=== PATIENT | female | born 1985 | race Caucasian/White ===

== ENCOUNTER 2019-08-23 01:49 | Inpatient (IN) | payer MEDICAID ==
[~2019-08-23] VITALS: Ht 152.4 cm; Wt 60.8 kg
[2019-08-23] MEDS ORDERED: DEXT 5%/LR + PITOCIN 20UNITS/L 1,000 ML IV SCH ×2 (03:04→08:44)
[2019-08-23] MEDS ORDERED: PNV1TABL76 PO (03:08)
[2019-08-23] MEDS ORDERED: FERR325T6 PO (03:08)
[2019-08-23] MEDS ORDERED: CARBOPROST TROMETHAMINE 250 MCG/ML AMPUL IM PRN (03:15)
[2019-08-23] MEDS ORDERED: METHYLERGONOVINE MALEATE 0.2 MG/ML IM PRN (03:15)
[2019-08-23] MEDS ORDERED: NALOXONE HCL 0.4 MG/ML 1ML VIAL IM PRN (03:15)
[2019-08-23] MEDS: LACTATED RINGERS 1,000 ML IV SCH ×2 (03:15→05:14)
[2019-08-23 04:20] LABS: BASOPHILS % 0.3 % (0.0-2.0); EOSINOPHILS % 0.4 % (0.0-5.0); HEMATOCRIT. 37.7 % (36.0-48.0); HEMOGLOBIN. 13.4 g/dL (12.0-16.0); LYMPHOCYTES % 27.9 % (20.0-50.0); MEAN CORPUSCULAR HEMOGLOBIN 36.1 pg (28.0-32.0); MEAN CORPUSCULAR VOLUME 101.9 fL (81.0-99.0); MEAN PLATELET VOLUME 10.5 fl (7.4-10.4); MONOCYTES % 5.6 % (2.0-8.0); NEUTROPHILS % 65.8 % (40.0-76.0); PLATELET 194 x1000/uL (130-400); RED CELL DISTRIBUTION WIDTH 13.6 % (11.6-14.6)
[2019-08-23 04:22] LABS: CLARITY URINE TURBID (CLEAR); COLOR URINE YELLOW (YELLOW); KETONES URINE NEGATIVE (NEGATIVE); LEUKOCYTE ESTERASE URINE 1+ (NEGATIVE); NITRITE URINE NEGATIVE (NEGATIVE); OCCULT BLOOD URINE TRACE (NEGATIVE); PROTEIN URINE 2+ (NEGATIVE); SPECIFIC GRAVITY URINE 1.014 (1.005-1.030); UROBILINOGEN URINE 0.2 E.U./dL (0.2-1.0)
[2019-08-23 04:27] LABS: INR 0.9; PROTHROMBIN TIME 9.4 sec (9.6-11.0)
[2019-08-23 04:46] LABS: *AMPHETAMINES SCREEN URINE NEGATIVE (NEGATIVE); *BARBITURATES SCREEN URINE NEGATIVE (NEGATIVE); *BENZODIAZEPINES SCREEN URINE NEGATIVE (NEGATIVE); *COCAINE SCREEN URINE NEGATIVE (NEGATIVE); METHADONE URINE SCREEN NEGATIVE (NEGATIVE); OPIATES URINE SCREEN NEGATIVE (NEGATIVE)
[2019-08-23 04:47] LABS: CANNABINOID URINE SCREEN NEGATIVE (NEGATIVE); PHENCYCLIDINE URINE SCREEN NEGATIVE (NEGATIVE)
[2019-08-23] MEDS ORDERED: MORPHINE SULFATE/PF 1MG/ML 10ML AMP ONE (07:07)
[2019-08-23] MEDS ORDERED: OXYTOCIN 10 UNITS/ML 1ML ONE (07:10)
[2019-08-23] MEDS ORDERED: EPHEDRINE SULFATE 50MG/ML VIAL ONE (07:10)
[2019-08-23] MEDS ORDERED: PHENYLEPHRINE HCL 10 MG/ML 1ML (IV VIAL) IV ONE (07:10)
[2019-08-23] MEDS ORDERED: GLYCOPYRROLATE 0.2 MG/ML 2ML VIAL ONE (07:10)
[2019-08-23] MEDS ORDERED: SODIUM CHLORIDE 0.9% 10ML VIAL ONE ×3 (07:12→07:18)
[2019-08-23] MEDS ORDERED: CITRIC ACID/SODIUM CITRATE SOLN 30ML UDC PO STA (07:12)
[2019-08-23] MEDS ORDERED: CEFAZOLIN SODIUM 1000MG/VIAL ONE (07:18)
[2019-08-23] MEDS ORDERED: ONDANSETRON HCL 4MG/2ML INJ ONE (07:50)
[2019-08-23] MEDS ORDERED: KETOROLAC 60MG/2ML VIAL IM ONE (07:59)
[2019-08-23] MEDS ORDERED: IBUPROFEN 400MG TABLET PO PRN (08:45)
[2019-08-23] MEDS ORDERED: DEXAMETHASONE 10 MG/ML VIAL IV PRN (08:45)
[2019-08-23] MEDS ORDERED: NALBUPHINE HCL 10 MG/ML AMP IV PRN (08:45)
[2019-08-23] MEDS ORDERED: DIPHENHYDRAMINE 50MG/ML VIAL IV PRN ×2 (08:45→15:30)
[2019-08-23] MEDS ORDERED: MORPHINE SULFATE 10 MG/ML CPJ IV PRN ×2 (08:45→15:30)
[2019-08-23] MEDS ORDERED: MORPHINE SULFATE 4 MG/ML CPJ (NOT FOR IM USE) IV PRN ×2 (08:45)
[2019-08-23] MEDS ORDERED: ONDANSETRON HCL 4MG/2ML INJ IV PRN ×2 (08:45→15:30)
[2019-08-23] MEDS ORDERED: MEPERIDINE HCL/PF 25MG/ML CPJ IV PRN (08:45)
[2019-08-23] MEDS ORDERED: RHO(D) IMMUNE GLOBULIN 300 MCG/SYR IM PRN (08:45)
[2019-08-23] MEDS ORDERED: BISACODYL 10MG SUPP PR PRN (09:00)
[2019-08-23] MEDS ORDERED: IBUPROFEN 800 MG in SODIUM CHLORIDE 0.9% 250 ML IV ONE (10:30)
[2019-08-23 11:00] VITALS: BP 119/64
[2019-08-23 11:04] LABS: HEPATITIS B SURFACE ANTIGEN NEGATIVE
[2019-08-23 12:00] VITALS: BP 118/61
[2019-08-23] MEDS ORDERED: KETOROLAC 30MG/ML VIAL IV SCH (12:00)
[2019-08-23 15:00] VITALS: BP 120/62
[2019-08-23] MEDS ORDERED: MORPHINE SULFATE 2 MG/ML CPJ (NOT FOR IM USE) IV PRN ×2 (15:30)
[2019-08-23] MEDS ORDERED: KETOROLAC 30MG/ML VIAL IV PRN (15:30)
[2019-08-23] MEDS ORDERED: TETANUS, DIPHTHERIA, PERTUSSIS VAC/PF 0.5ML (>7YR OLD) IM ONE (17:00)
[2019-08-23] MEDS ORDERED: INFLUENZA VIRUS VACCINE(AFLURIA) 0.5ML SYR IM ONE (17:00)
[2019-08-23 19:45] VITALS: BP 115/60
[2019-08-23 20:45] LABS: BASOPHILS % 0.1 % (0.0-2.0); EOSINOPHILS % 0.3 % (0.0-5.0); HEMATOCRIT. 32.9 % (36.0-48.0); HEMOGLOBIN. 11.5 g/dL (12.0-16.0); LYMPHOCYTES % 22.5 % (20.0-50.0); MEAN CORPUSCULAR HEMOGLOBIN 35.8 pg (28.0-32.0); MEAN CORPUSCULAR VOLUME 102.5 fL (81.0-99.0); MEAN PLATELET VOLUME 10.6 fl (7.4-10.4); MONOCYTES % 7.9 % (2.0-8.0); NEUTROPHILS % 69.2 % (40.0-76.0); PLATELET 166 x1000/uL (130-400); RED BLOOD CELL COUNT 3.21 mill/uL (4.2-5.4); RED CELL DISTRIBUTION WIDTH 13.8 % (11.6-14.6)
[2019-08-23 23:40] VITALS: BP 105/66
[2019-08-24 04:38] VITALS: BP 107/55
[2019-08-24] MEDS: IBUPROFEN 800MG TABLET PO PRN ×2 (04:39→12:31)
[2019-08-24 08:00] VITALS: BP 99/61
[2019-08-24 13:42] VITALS: BP 111/72
[2019-08-24 20:00] VITALS: BP 109/59
[2019-08-24 23:55] VITALS: BP 112/64
[2019-08-25 04:00] VITALS: BP 114/65
[2019-08-25] MEDS: IBUPROFEN 800MG TABLET PO PRN (06:53)
[2019-08-25 07:30] VITALS: BP 104/56
[2019-08-25] MEDS ORDERED: PENICILLIN G BENZATHINE 2,400,000 UNITS/4ML SYR IM NR (08:00)
[2019-08-25 10:18] LABS: BASOPHILS % 0.3 % (0.0-2.0); EOSINOPHILS % 0.5 % (0.0-5.0); HEMATOCRIT. 34.2 % (36.0-48.0); HEMOGLOBIN. 11.7 g/dL (12.0-16.0); LYMPHOCYTES % 18.2 % (20.0-50.0); MEAN CORPUSCULAR HEMOGLOBIN 35.1 pg (28.0-32.0); MEAN CORPUSCULAR VOLUME 102.2 fL (81.0-99.0); MEAN PLATELET VOLUME 9.9 fl (7.4-10.4); MONOCYTES % 6.1 % (2.0-8.0); NEUTROPHILS % 74.9 % (40.0-76.0); PLATELET 215 x1000/uL (130-400); RED BLOOD CELL COUNT 3.35 mill/uL (4.2-5.4); RED CELL DISTRIBUTION WIDTH 13.7 % (11.6-14.6)
[2019-08-25 16:00] VITALS: BP 113/67
[2019-08-25 19:30] VITALS: BP 103/69
[2019-08-26 04:00] VITALS: BP 90/46
[2019-08-26] MEDS ORDERED: IBUP-2030 PO (07:09)
[2019-08-26 07:45] VITALS: BP 114/64
== END 2019-08-26 10:00 | disposition home or self-care (01) | DRG 540 ==
LOC: OBSVTOIN 01:49 → 8 EST LDRP 01:49 → 8EST 10:48
PROVIDERS: ADMIT Obstetrics & Gynecology; ATTEND Obstetrics & Gynecology
PROC: 10D00Z1 Extraction of Products of Conception, Low, Open Approach (ICD-10-PCS; principal; 2019-08-23)
DX: O69.81X0 Labor and delivery complicated by cord around neck, without compression, not applicable or unspecified (principal); O98.12 Syphilis complicating childbirth; O34.211 Maternal care for low transverse scar from previous cesarean delivery; Z37.0 Single live birth; Z3A.39 39 weeks gestation of pregnancy
CPT/HCPCS: 36415; 80305; 81003; 85025; 86592; 86593; 86703; 86762; 86780; 86850; 86900; 87340; 88307; 90686; 90715; 99281; G0378; J0561; J0690; J1741; J1885; J2274; J2370; J2405; J2590; J3490; J7050; J7120

== ENCOUNTER 2022-06-24 09:00 | Inpatient (IN) | payer MEDICAID ==
[~2022-06-24] VITALS: Ht 149 cm; Wt 63.0 kg
[~2022-06-24 09:00] MED LIST: FERR325T6 PO; IBUP-2030 PO; PNV1TABL76 PO
[2022-06-24] MEDS ORDERED: LACTATED RINGERS 1,000 ML IV SCH (10:15)
[2022-06-24] MEDS ORDERED: NALOXONE HCL 0.4 MG/ML 1ML VIAL IM PRN (10:15)
[2022-06-24] MEDS ORDERED: AMPICILLIN 2GM in NS 100ML 100 ML IV NR (10:15)
[2022-06-24] MEDS ORDERED: METHYLERGONOVINE MALEATE 0.2 MG/ML IM PRN (10:15)
[2022-06-24] MEDS ORDERED: BUTORPHANOL TARTRATE 2 MG/ML VIAL IV PRN (10:15)
[2022-06-24] MEDS ORDERED: LIDOCAINE HCL 1% 20ML VIAL (Pyxis) INJ INFIL SCH (10:15)
[2022-06-24 10:23] LABS: BASOPHILS % 0.3 % (0.0-2.0); EOSINOPHILS % 0.1 % (0.0-5.0); HEMATOCRIT. 37.4 % (36.0-48.0); HEMOGLOBIN. 12.7 g/dL (12.0-16.0); LYMPHOCYTES % 14.2 % (20.0-50.0); MEAN CORPUSCULAR HEMOGLOBIN 33.8 pg (28.0-32.0); MEAN CORPUSCULAR VOLUME 99.9 fL (81.0-99.0); MEAN PLATELET VOLUME 10.7 fl (7.4-10.4); NEUTROPHILS % 80.4 % (40.0-76.0); PLATELET 215 x1000/uL (130-400); RED BLOOD CELL COUNT 3.74 mill/uL (4.2-5.4); RED CELL DISTRIBUTION WIDTH 13.5 % (11.6-14.6)
[2022-06-24 10:31] LABS: CLARITY URINE TURBID (CLEAR); KETONES URINE NEGATIVE (NEGATIVE); LEUKOCYTE ESTERASE URINE 2+ (NEGATIVE); NITRITE URINE NEGATIVE (NEGATIVE); OCCULT BLOOD URINE 3+ (NEGATIVE); PROTEIN URINE 3+ (NEGATIVE); SPECIFIC GRAVITY URINE 1.019 (1.005-1.030)
[2022-06-24 10:33] LABS: INR 0.9; PARTIAL THROMBOPLASTIN TIME 26.2 sec (23.4-31.0); PROTHROMBIN TIME 9.6 sec (9.6-11.0)
[2022-06-24 10:53] LABS: COLOR URINE BLOODY (YELLOW)
[2022-06-24 11:07] LABS: *AMPHETAMINES SCREEN URINE NEGATIVE (NEGATIVE); *BARBITURATES SCREEN URINE NEGATIVE (NEGATIVE); *BENZODIAZEPINES SCREEN URINE NEGATIVE (NEGATIVE); *COCAINE SCREEN URINE NEGATIVE (NEGATIVE); CANNABINOID URINE SCREEN NEGATIVE (NEGATIVE); METHADONE URINE SCREEN NEGATIVE (NEGATIVE); OPIATES URINE SCREEN NEGATIVE (NEGATIVE); PHENCYCLIDINE URINE SCREEN NEGATIVE (NEGATIVE)
[2022-06-24] MEDS: OXYTOCIN 30 UNITS/500ML NS PMX 500 ML IV SCH ×2 (12:02→12:47)
[2022-06-24] MEDS ORDERED: IBUPROFEN 800MG TABLET PO PRN (12:30)
[2022-06-24] MEDS ORDERED: BENZOCAINE/LANOLIN/ALOE VERA SPRAY TOP PRN (12:30)
[2022-06-24] MEDS ORDERED: IBUPROFEN 400MG TABLET PO PRN (12:30)
[2022-06-24 13:15] VITALS: BP 115/68
[2022-06-24 16:00] VITALS: BP 124/84
[2022-06-24] MEDS ORDERED: AMPICILLIN 1,000 MG in SODIUM CHLORIDE 0.9% 50 ML IV SCH (16:30)
[2022-06-24] MEDS ORDERED: INFLUENZA VACCINE 05/PF 0.5 ML SYRINGE IM ONE (17:30)
[2022-06-24 20:00] VITALS: BP 116/71
[2022-06-25] VITALS: BP 120/82
[2022-06-25 04:00] VITALS: BP 117/79
[2022-06-25] MEDS: FERROUS SULFATE 325MG TABLET PO SCH ×3 (07:30→17:30)
[2022-06-25 07:33] LABS: BASOPHILS % 0.2 % (0.0-2.0); EOSINOPHILS % 0.2 % (0.0-5.0); HEMATOCRIT. 31.2 % (36.0-48.0); HEMOGLOBIN. 10.9 g/dL (12.0-16.0); LYMPHOCYTES % 18.9 % (20.0-50.0); MEAN CORPUSCULAR VOLUME 100.1 fL (81.0-99.0); NEUTROPHILS % 73.7 % (40.0-76.0); PLATELET 208 x1000/uL (130-400); RED BLOOD CELL COUNT 3.12 mill/uL (4.2-5.4); RED CELL DISTRIBUTION WIDTH 13.7 % (11.6-14.6)
[2022-06-25 08:00] VITALS: BP 110/68
[2022-06-25] MEDS ORDERED: PRENATAL VIT/FE FUMARATE/FA TABLET PO SCH (09:00)
[2022-06-25] MEDS ORDERED: PEN G BENZ/PEN G PROCAINE CR 1.2 MMU/2 ML IM ONE (09:30)
[2022-06-25] MEDS ORDERED: FENTANYL CITRATE/PF 50MCG/ML 2ML VIAL ONE (10:47)
[2022-06-25] MEDS ORDERED: LIDOCAINE HCL/PF 1% 10 MG/ML 5ML VIAL ONE (10:48)
[2022-06-25] MEDS ORDERED: PROPOFOL 200MG/20ML VIAL IV ONE (10:48)
[2022-06-25] MEDS ORDERED: MIDAZOLAM HCL 2 MG/2 ML VIAL ONE (10:48)
[2022-06-25] MEDS ORDERED: PENICILLIN G BENZATHINE 1,200,000 UNITS/2ML SYR IM SCH ×2 (11:00)
[2022-06-25] MEDS ORDERED: KETOROLAC 60MG/2ML VIAL IM ONE (11:49)
[2022-06-25] MEDS ORDERED: ONDANSETRON HCL 4MG/2ML INJ ONE (11:50)
[2022-06-25] MEDS ORDERED: BUPIVACAINE HCL/PF 0.25% (2.5MG/ML) 10ML ONE (12:11)
[2022-06-25 13:58] VITALS: BP 113/62
[2022-06-25 20:00] VITALS: BP 117/75
[2022-06-26 03:00] VITALS: BP 130/79
[2022-06-26] MEDS ORDERED: IBUP-2030 PO (07:44)
[2022-06-26 08:00] VITALS: BP 125/80
[2022-06-26 16:00] VITALS: BP 128/77
[2022-06-29 18:44] LABS: HEPATITIS B SURFACE ANTIGEN NEGATIVE
== END 2022-06-26 17:02 | disposition home or self-care (01) | DRG 541 ==
LOC: OBSVTOIN 09:00 → INTOOBSV 09:00 → L&D 09:00 → 8 EST LDRP 09:13 → 8EST 13:12
PROVIDERS: ADMIT Obstetrics & Gynecology; ATTEND Obstetrics & Gynecology
PROC: 10D07Z6 Extraction of Products of Conception, Vacuum, Via Natural or Artificial Opening (ICD-10-PCS; principal; 2022-06-24)
PROC: 0UB70ZZ Excision of Bilateral Fallopian Tubes, Open Approach (ICD-10-PCS; 2022-06-24)
PROC: 0KQM0ZZ Repair Perineum Muscle, Open Approach (ICD-10-PCS; 2022-06-24)
DX: O98.12 Syphilis complicating childbirth (principal); Z37.0 Single live birth; O34.211 Maternal care for low transverse scar from previous cesarean delivery; O70.1 Second degree perineal laceration during delivery; Z3A.37 37 weeks gestation of pregnancy; Z83.3 Family history of diabetes mellitus; Z20.822 Contact with and (suspected) exposure to COVID-19; Z30.2 Encounter for sterilization
CPT/HCPCS: 36415; 80305; 81003; 85025; 86592; 86593; 86703; 86762; 86780; 86850; 86900; 87077; 87340; 87426; 88302; 90686; 99281; C1893; J0290; J0561; J0595; J1885; J2250; J2310; J2405; J2704; J3010; J3490; J7120; A4315; J2590